=== PATIENT | female | born 1935 | race Caucasian/White ===

== ENCOUNTER → 2017-02-27 | Outpatient (CLI) | payer OTHER ==
[~2017-02-27] MED LIST: AMLO-110 PO; CALC-393 PO; CARV12.52 PO; CHOL200010 PO; FMR25 PO; FOLI1POW10 PO; GABA-113 PO; LEVOPOW36 PO; MAGN400T6 PO; MULT-190 PO; OXYC5TAB PO; RIVA1TAB4 PO; VALS320T PO
--- NOTE | 2017-02-27 15:06 | DIAGNOSTIC IMAGING REPORT ---
RIGHT KNEE 3 VIEWS CLINICAL HISTORY: Rheumatoid arthritis. Osteoporosis. Vitamin D deficiency. FINDINGS: AP, lateral, and sunrise views of the right knee are obtained. No prior studies are available for comparison at the time of dictation. The skeletal structures are osteopenic. No fracture is seen. There is moderate degenerative narrowing at the patellofemoral articulation. Mild narrowing is seen in the medial and lateral compartments. There are marginal osteophytes. A calcified fabella is incidentally noted. No erosive change is seen. There is no large joint effusion. Mild overlying soft tissue edema is identified. IMPRESSION: 1. Mild soft tissue swelling with no acute bony abnormality identified. 2. Osteopenia and arthritic change as above. Electronically signed by: Adolfo Maddox M.D. 02/27/2017 3:04 PM Dictated Date/Time: 02/27/2017 3:03 PM
== END | disposition home or self-care (01) ==
LOC: C.RAD1850 14:41
PROVIDERS: ATTEND Internal Medicine Rheumatology
DX: E55.9 Vitamin D deficiency, unspecified (principal); M79.642 Pain in left hand; M06.9 Rheumatoid arthritis, unspecified; M81.0 Age-related osteoporosis without current pathological fracture; M85.88 Other specified disorders of bone density and structure, other site

== ENCOUNTER → 2017-03-18 | Outpatient (CLI) | payer OTHER ==
[~2017-03-18] MED LIST changes: +PRED10TA PO
--- NOTE | 2017-03-18 13:34 | DIAGNOSTIC IMAGING REPORT ---
ABD/PELVIS IV AND ORAL CONT CLINICAL HISTORY: 82 years-old Female presenting with BREAST CA. TECHNIQUE: Multidetector CT of the abdomen and pelvis was performed after the administration of oral and intravenous contrast. IV contrast: 93 mL of Optiray 320. COMPARISON: PET/CT from April 2016 and December 20, [address] from December 2016. CT DOSE: The estimated cumulative dose is 470.[address] is above the chest CT. FINDINGS: Manager Demand topogram: Left subclavian Mediport terminates in the superior cavoatrial junction. Cardiomegaly. S-shaped scoliotic curvature of the spine. Lung bases: Right sided enlargement of the heart. Aortic valve calcification. Trace pericardial effusion. No pleural effusion. Liver: Capsular retraction with an underlying triangular peripheral hypodensity in the right hepatic lobe (series 5 image 15). Multiple well-defined hypodensities in the liver, grossly similar to prior exams. Patent hepatic vasculature. Biliary: Mild intrahepatic ductal dilatation diffusely. No extrahepatic biliary duct dilatation. No convincing evidence of an obstructing biliary mass. The adjacent large exophytic right renal cyst major mass effect on the liver hilum, potentially accounting for intrahepatic biliary ductal dilatation. Normal gallbladder. Pancreas: Normal. Spleen: Normal. Adrenal glands: Normal. Kidneys and ureters: Multiple bilateral well-defined hypodensities in the kidneys consistent with cysts. Mild dilatation of the right collecting system and right ureter. This is not well evaluated on prior exams. Gastrointestinal tract: Mild stool burden. No bowel obstruction. Peritoneal cavity: No free fluid or intraperitoneal gas. Bladder: Normal. Pelvic organs: Uterus surgically absent. No adnexal masses. Vasculature: Atherosclerosis of the normal caliber abdominal aorta. Lymph nodes: No enlarged lymph nodes in the abdomen or pelvis. Abdominal wall: Normal. Musculoskeletal: Degenerative changes of the spine. IMPRESSION: 1. No convincing evidence of intra-abdominal metastases. No lymphadenopathy. 2. Capsular retraction with an underlying peripheral hypodensity in the right hepatic lobe is indeterminate. Attention on follow-up. This is not well evaluated on prior exams due to noncontrast technique. Electronically signed by: Donnell Briggs M.D. 03/18/2017 1:33 PM Dictated Date/Time: 03/18/2017 1:21 PM
--- NOTE | 2017-03-18 13:36 | DIAGNOSTIC IMAGING REPORT ---
(CHEST) THORAX WITH HISTORY: 82 years Female BREAST CA COMPARISON: Chest CT 01/10/2017, PET/CT 10/12/2016, chest CT 08/28/2015. No reports from these studies were available at time of dictation. Images only. TECHNIQUE: Multiple axial CT images of the chest were obtained following the intravenous administration of 93 mL Optiray 320. FINDINGS: Left pectoral Hnjxes-m-Talz catheter is present with distal tip terminating in the SVC just proximal to the superior cavoatrial junction. Prior right-sided mastectomy. No pathologic-appearing axillary, mediastinal or hilar adenopathy by CT size criteria. The heart is mildly enlarged with coronary arterial calcifications seen. There is moderate atherosclerosis of the thoracic aorta. There is no pneumothorax or pleural effusion. Postsurgical changes of the right lung are noted which appear to be compatible with prior right upper lobectomy. Likely posttreatment radiation fibrosis noted within the anterior right lung. Linear pleural-based opacity of the lateral right lower lobe also noted suggesting scarring. Somewhat spiculated linear opacity, 7 mm of the right lung base appears unchanged from comparison CT of the chest as seen on image 145 of the thin section images. No definite pulmonary metastasis identified. Minimal mucosal secretions are seen within the airway. 2.1 x 1.1 cm hyperattenuating lesion of the subcapsular anterior right hepatic lobe is noted which is nonspecific and unchanged dating back to chest CT dated 08/28/2015 suggesting benign etiology such as FNH or flash filling hemangioma. Suggested cyst of the posterior right hepatic lobe measures 1.9 x 1.2 cm. Multilevel advanced intervertebral disc space narrowing is seen throughout the spine. IMPRESSION: 1. Stable exam of the chest with redemonstration of scattered areas of noncalcified nodularity about the chest which appear most compatible with areas of parenchymal scarring. No new suspicious pulmonary nodules are identified. 2. Postsurgical changes of the right lung suggest prior right upper lobectomy. 3. Prior right mastectomy. 4. No pathologic appearing adenopathy. 5. Stable appearance of hyperattenuating lesion of the subcapsular right hepatic lobe, 2.1 cm which is unchanged from 08/28/2015 suggesting FNH or flash filling hemangioma. The above report was generated using voice recognition software. It may contain grammatical, syntax or spelling errors. Electronically signed by: Geoffrey Borges M.D. 03/18/2017 1:35 PM Dictated Date/Time: 03/18/2017 1:21 PM
== END | disposition home or self-care (01) ==
LOC: C.CTS 10:20
PROVIDERS: ATTEND Nurse Practitioner Family
DX: D05.11 Intraductal carcinoma in situ of right breast (principal); C34.11 Malignant neoplasm of upper lobe, right bronchus or lung

== ENCOUNTER → 2017-03-26 | Outpatient (CLI) | payer OTHER | END | disposition home or self-care (01) | LOC: C.LAB1850 10:21 | PROVIDERS: ATTEND Internal Medicine Rheumatology | DX: M06.9 Rheumatoid arthritis, unspecified (principal); M81.0 Age-related osteoporosis without current pathological fracture; E55.9 Vitamin D deficiency, unspecified; M79.641 Pain in right hand; M79.642 Pain in left hand ==

== ENCOUNTER → 2017-04-01 | Outpatient (CLI) | payer OTHER ==
[2017-04-01 13:38] VITALS: BP 143/80; PULSE 90; TEMP 36.9; O2SAT 98
--- NOTE | 2017-04-01 15:51 | Radiation Oncology Follow-Up ---
Radiation Oncology Follow-Up Date of Visit Apr 01, 2017. 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 breast Status: Resolved Onset Date: 10/15/2013 Histology Subtype: ductal Stage: lll (C) Permanent Comment: Abnormal right breast mammogram right breast FNA 10/15/2013 revealing low-grade ductal carcinoma Status post right breast mastectomy and axillary dissection 10/22/2013 revealing invasive ductal carcinoma stage [id number] Maria Guadalupe receptor positive progesterone receptor positive and HER-2/daron negative Status post completion of radiation therapy 08/23/2014 received 6120 cGy Ongoing treatment with Femara Last Edited By: Yanni Sloan on Mar 22, 2015 16:05 Interim History She has been doing well over this past year. She denies any changes to the chest wall. She has noted no masses or tenderness no change of the axilla. She does have a history of lymphedema. She feels this is now controlled. She does not need to her to use her sleeve on a regular basis. 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 She had been diagnosed with adenocarcinoma of the lung last year. She is followed closely by medical oncology. She has recently undergone recheck scanning and has no reoccurrence. Allergies Coded Allergies: Penicillin V (Verified Allergy, Severe, SHORTNESS OF BREATH, 03/21/16) Clindamycin (Verified Allergy, Intermediate, RASH, 03/21/16) Doxycycline (Verified Allergy, Intermediate, HIVES, 03/21/16) Sulfa Antibiotics (Verified Allergy, Intermediate, RASH, 03/21/16) Diphenhydramine (Verified Allergy, Mild, DONT REMEMBER TOLD NOT TO TAKE WHEN SHE WAS CHEMO CENTER, 03/21/16) Lisinopril (Verified Allergy, Mild, DONT REMEMBER, 03/21/16) Epinephrine (Verified Adverse Reaction, Intermediate, HEART RACING, ) heart racing, happened at the dentist. Home Medications Scheduled Amlodipine (Norvasc), 5 MG PO DINNER Calcium Carbonate (Calcium), 1,200 MG PO QPM Carvedilol (Coreg), 1 TAB PO BID Cholecalciferol (Vitamin D), 2,000 MG PO QPM Folic Acid (Folic Acid), 3 MG PO DINNER Gabapentin (Neurontin), 300 MG PO BID Letrozole (Femara), 2.5 MG PO DAILY Levothyroxine Sodium (Bulk) (Levothyroxine Sodium), 100 MCG PO QAM Magnesium Oxide (Mag-Ox), 400 MG PO HS Ocuvite Preservision (Ocuvite Preservision), 3 TAB PO DINNER Prednisone Tab (Prednisone), 20 MG PO DAILY Rivaroxaban (Xarelto), 20 MG PO DINNER Valsartan (Diovan), 320 MG PO DINNER Review of Systems Gastrointestinal: Symptoms: WNL Oral: Symptoms: No Problems Other Oral Symptoms: Patient having trouble swallowing larger pills Respiratory: Symptoms: WNL Respiratory Comments: SOB with walking up stairs Other Respiratory: SOB with exertion that has improved;intermittent dry cough; Urinary: Symptoms: WNL Skin: Symptoms: No Problems Breast: Right Upper Arm Measurement: 27.0 Right Mid Arm Measurement: 21.0 Right Wrist Measurement: 15.5 Left Upper Arm Measurement: 28.0 Left Mid Arm Measurement: 21.5 Left Wrist Measurement: 15.5 Arm Dominence: Right Cosmetic Comments: hx lymphedema of right arm Physical Exam Vital Signs Date Time Temp Pulse Resp B/P (MAP) Pulse Ox O2 Delivery O2 Flow Rate FiO2 04/01/17 13:38 36.9 90 18 143/80 98 Pain: Pain Location: None Patient Pain Scale: 0 - 10 Initial Pain Intensity: 0.0 Fatigue: None General Appearance: + thin Eyes: normal inspection, EOMI ENT: normal ENT inspection, hearing grossly normal Neck: no adenopathy, thyroid normal Respiratory/Chest: lungs clear, no respiratory distress, no accessory muscle use Breast: Breast examination reveals status post mastectomy on the right. There is diffuse telangiectasias across the chest wall. There are no masses or tenderness and no axillary adenopathy. The left breast showed no masses or tenderness and no axillary adenopathy. Cardiovascular: no gallop, no murmur, + irregularly irregular Abdomen: non tender, soft Extremities: no pedal edema Neurologic/Psychiatric: no motor/sensory deficits, alert, normal mood/affect Skin: warm/dry Laboratory Studies Test 02/27/17 15:03 03/26/17 10:28 Calcium Level 10.0 mg/dl (8.5-10.1) 25-Hydroxy Vitamin D Total 49.7 ng/ml (30-100) Parathyroid Hormone (Intact) 24.5 pg/mL (11.1-79.5) Erythrocyte Sedimentation Rate 2 mm/hr (0-21) Additional Studies Patient: GAURANG SERRANO Address1: [address] [place] [address] Rec: [id number] Address2: Acct ID: [id number] [facility] Zip: [place] [address] Date: 1935 Sex: F Room/Bed: Ref Phy: Rina Clifton M.D. SC: C.CTS Att Phy: Char Fernandez CRNP Report #: [id number] Lesly Phy: Rina Clifton M.D. Test: APW Admit Phy: Developmental Therapist: JONATHAN Interpreting Phy: Donnell Briggs MD Diagnosis: BREAST CA Ordering Phy: Char Fernandez Service Date: 03/18/17 Admit Date: 03/18/17 MNE: [id number] CONF: DICTATED BY: Donnell Briggs MD]] CC: Rina Clifton M.D., Lynn ., CRNP Endcc: [~ rep ct add3]] ABD/PELVIS IV AND ORAL CONT CLINICAL HISTORY: 82 years-old Female presenting with BREAST CA. TECHNIQUE: Multidetector CT of the abdomen and pelvis was performed after the administration of oral and intravenous contrast. IV contrast: 93 mL of Optiray 320. COMPARISON: PET/CT from April 2016 and December 20, [address] from December 2016. CT DOSE: The estimated cumulative dose is 470.44 is above [address] chest CT. FINDINGS: Block Engraver topogram: Left subclavian Mediport terminates in the superior cavoatrial junction. Cardiomegaly. S-shaped scoliotic curvature of the spine. Lung bases: Right sided enlargement of the heart. Aortic valve calcification. Trace pericardial effusion. No pleural effusion. Liver: Capsular retraction with an underlying triangular peripheral hypodensity in the right hepatic lobe (series 5 image 15). Multiple well-defined hypodensities in the liver, grossly similar to prior exams. Patent hepatic vasculature. Biliary: Mild intrahepatic ductal dilatation diffusely. No extrahepatic biliary duct dilatation. No convincing evidence of an obstructing biliary mass. The adjacent large exophytic right renal cyst major mass effect on the liver hilum, potentially accounting for intrahepatic biliary ductal dilatation. Normal gallbladder. Pancreas: Normal. Spleen: Normal. Adrenal glands: Normal. Kidneys and ureters: Multiple bilateral well-defined hypodensities in the kidneys consistent with cysts. Mild dilatation of the right collecting system and right ureter. This is not well evaluated on prior exams. Gastrointestinal tract: Mild stool burden. No bowel obstruction. Peritoneal cavity: No free fluid or intraperitoneal gas. Bladder: Normal. Pelvic organs: Uterus surgically absent. No adnexal masses. Vasculature: Atherosclerosis of the normal caliber abdominal aorta. Lymph nodes: No enlarged lymph nodes in the abdomen or pelvis. Abdominal wall: Normal. Musculoskeletal: Degenerative changes of the spine. IMPRESSION: 1. No convincing evidence of intra-abdominal metastases. No lymphadenopathy. 2. Capsular retraction with an underlying peripheral hypodensity in the right hepatic lobe is indeterminate. Attention on follow-up. This is not well evaluated on prior exams due to noncontrast technique. Electronically signed by: Donnell Briggs M.D. 03/18/2017 1:33 PM Dictated Date/Time: 03/18/2017 1:21 PM Patient: GAURANG SERRANO Address1: [address] [place] [address] Rec: [id number] Address2: Acct ID: [id number] [facility] Zip: [place] [address] Date: 1935 Sex: F Room/Bed: Ref Phy: Rina Clifton M.D. SC: C.CTS Att Phy: Char Fernandez CRNP Report #: [id number] Lesly Phy: Rina Clifton M.D. Test: CX Admit Phy: Developmental Therapist: JONATHAN Interpreting Phy: Arnie Borges D.O. Diagnosis: BREAST CA Ordering Phy: Char Fernandez Service Date: 03/18/17 Admit Date: 03/18/17 MNE: [id number] CONF: DICTATED BY: Arnie Borges D.O.]] CC: Rina Clifton M.D., Lynn ., CRNP Endcc: [~ rep ct add3]] (CHEST) THORAX WITH HISTORY: 82 years Female BREAST CA COMPARISON: Chest CT 01/10/2017, PET/CT 10/12/2016, chest CT 08/28/2015. No reports from these studies were available at time of dictation. Images only. TECHNIQUE: Multiple axial CT images of the chest were obtained following the intravenous administration of 93 mL Optiray 320. FINDINGS: Left pectoral Wrqjpy-o-Nmjn catheter is present with distal tip terminating in the SVC just proximal to the superior cavoatrial junction. Prior right-sided mastectomy. No pathologic-appearing axillary, mediastinal or hilar adenopathy by CT size criteria. The heart is mildly enlarged with coronary arterial calcifications seen. There is moderate atherosclerosis of the thoracic aorta. There is no pneumothorax or pleural effusion. Postsurgical changes of the right lung are noted which appear to be compatible with prior right upper lobectomy. Likely posttreatment radiation fibrosis noted within the anterior right lung. Linear pleural-based opacity of the lateral right lower lobe also noted suggesting scarring. Somewhat spiculated linear opacity, 7 mm of the right lung base appears unchanged from comparison CT of the chest as seen on image 145 of the thin section images. No definite pulmonary metastasis identified. Minimal mucosal secretions are seen within the airway. 2.1 x 1.1 cm hyperattenuating lesion of the subcapsular anterior right hepatic lobe is noted which is nonspecific and unchanged dating back to chest CT dated 08/28/2015 suggesting benign etiology such as FNH or flash filling hemangioma. Suggested cyst of the posterior right hepatic lobe measures 1.9 x 1.2 cm. Multilevel advanced intervertebral disc space narrowing is seen throughout the spine. IMPRESSION: 1. Stable exam of the chest with redemonstration of scattered areas of noncalcified nodularity about the chest which appear most compatible with areas of parenchymal scarring. No new suspicious pulmonary nodules are identified. 2. Postsurgical changes of the right lung suggest prior right upper lobectomy. 3. Prior right mastectomy. 4. No pathologic appearing adenopathy. 5. Stable appearance of hyperattenuating lesion of the subcapsular right hepatic lobe, 2.1 cm which is unchanged from 08/28/2015 suggesting FNH or flash filling hemangioma. The above report was generated using voice recognition software. It may contain grammatical, syntax or spelling errors. Electronically signed by: Geoffrey Borges M.D. 03/18/2017 1:35 PM Dictated Date/Time: 03/18/2017 1:21 PM She had a mammogram at [facility] 07/26/2016. There is no evidence of malignancy for the left breast. BI-RADS Category 2. Assessment & Plan Plan: Continue annual mammography for the left breast. She continues close follow-up with medical oncology. She'll continue to do her exercises and where her sleeves to prevent lymphedema. We asked her to return to our office in 1 year. She may call if she has any questions or concerns in the interim. Total Time In Follow-Up I spent 20 minutes speaking to the patient and performing examination. I spent 15 minutes reviewing information and completing this note. Copy To Jimy You D.O.; Rina Clifton M.D. Problem Qualifiers (1) Malignant neoplasm of upper-outer quadrant of female breast: Estrogen receptor status: positive Laterality: right Qualified Codes: C50.411 - Malignant neoplasm of upper-outer quadrant of right female breast; Z17.0 - Estrogen receptor positive status [ER+]
== END | disposition home or self-care (01) ==
LOC: C.ONC 13:17
PROVIDERS: ATTEND Physician Assistant Medical
DX: C50.411 Malignant neoplasm of upper-outer quadrant of right female breast (principal)

== ENCOUNTER → 2017-05-02 | Outpatient (CLI) | payer OTHER ==
[~2017-05-02] MED LIST changes: -OXYC5TAB PO
[2017-05-02 09:41] LABS: BASO % 0.5 %; BASO ABS # 0.03 K/uL (0-0.2); COMPLETE YES; EOS % 1.3 %; HEMATOCRIT 35.1 % (37-47); IG% 0.6 %; LYMPH % 8.8 %; LYMPH ABS # 0.56 K/uL (1.2-3.4); MEAN CELL VOLUME 92.6 fL (80-100); MEAN CORPUSCULAR HEMOGLOBIN 29.8 pg (25-34); MEAN CORPUSCULAR HGB CONC 32.2 g/dl (32-36); MEAN PLATELET VOLUME 10.2 fL (7.4-10.4); MONO % 6.4 %; NEUT % 82.4 %; PLATELET COUNT 134 K/uL (130-400); RED BLOOD COUNT 3.79 M/uL (4.2-5.4); WHITE BLOOD COUNT 6.37 K/uL (4.8-10.8)
[2017-05-02 10:05] LABS: ALT/SGPT 25 U/L (12-78); AST/SGOT 15 U/L (15-37); CREATININE 0.97 mg/dl (0.60-1.20)
== END | disposition home or self-care (01) ==
LOC: C.LAB1850 08:06
PROVIDERS: ATTEND Internal Medicine Rheumatology
DX: M06.9 Rheumatoid arthritis, unspecified (principal)

== ENCOUNTER → 2017-06-13 | Outpatient (CLI) | payer OTHER ==
[~2017-06-13] MED LIST changes: +OPTIRAY 320 IV PRN
--- NOTE | 2017-06-13 12:22 | DIAGNOSTIC IMAGING REPORT ---
ADDENDUM The findings paragraph on the original report should have been deleted prior to finalizing the report. Please disregard this paragraph. Electronically signed by: Wild Shelton M.D. 06/13/2017 1:46 PM Dictated Date/Time: 06/13/2017 1:45 PM ORIGINAL REPORT CHEST CT WITH CONTRAST CT DOSE: 209.33 mGy.cm HISTORY: Lung cancer. TECHNIQUE: Multiaxial CT images of the chest were performed following the intravenous administration of contrast. A dose lowering technique was utilized adhering to the principles of ALARA. COMPARISON: Chest CT 03/18/2017. Multiple bilateral renal cysts. The spleen and adrenal glands are unremarkable. No pleural fusions. Trace pericardial effusion, unchanged. The heart remains enlarged. Prior right mastectomy. No axillary lymphadenopathy. A left Port-A-Cath terminates in the SVC. Normal caliber thoracic aorta with no evidence for dissection. The main pulmonary arteries are patent. No hilar lymphadenopathy. Subcentimeter mediastinal lymph nodes do not meet CT criteria for pathologic involvement. Although, the dominant right peritracheal lymph node on image 111 has increased in size and currently measures 8 mm, previous measuring 6 mm. No change in the peripheral hypervascular focus within the right hepatic lobe which measures 2 cm. This time. Central hypodensity and focal liver traction. No change in the patchy air sclerosis along the right side of the manubrium which measures 2 cm. No pneumothorax. Stable scattered tiny nodules remain unchanged. These are most pronounced within the left upper lobe. No new pulmonary nodules identified. Prior right upper lobectomy. Residual central airways are patent. No change in the 1.7 x 1.3 cm groundglass irregular nodule within the periphery the right lower lobe. There is also stable linear scarlike density within the right lower lobe on image 106. There is also patchy stable sclerosis within the right anterior first rib. FINDINGS: The lungs are clear. The mediastinal vascular structures are within normal limits. No mediastinal or hilar lymphadenopathy. No pleural effusion or pneumothorax. Limited views of the upper abdomen demonstrate a normal liver and spleen. IMPRESSION: 1. Overall, similar exam compared to the prior study.. 2. Postoperative changes consistent with prior right upper lobectomy. 3. No change in 1.7 x 1.3 cm groundglass irregular nodule within the periphery of the right lower lobe. This could represent an area of scarring. However, low-grade neoplasm remains the diagnosis of exclusion. Continued follow up is recommended. 4. Stable 2 cm hypervascular focus within the right hepatic lobe. This favors a benign process. 5. No change in the scattered tiny nodules within the lungs. No new pulmonary nodules identified. 6. Subcentimeter mediastinal lymph nodes do not meet CT criteria for pathologic involvement. However, these have slightly increased in size compared the prior chest CT. A follow-up [address] is recommended to ensure stability. 6. Stable cardiomegaly. 7. Stable trace pericardial effusion. 8. Stable patchy areas of cirrhosis within the right anterior first rib and right side of the manubrium. The long-term stability favors post radiation changes. Electronically signed by: Wild Shelton M.D. 06/13/2017 12:21 PM Dictated Date/Time: 06/13/2017 12:02 PM
== END | disposition home or self-care (01) ==
LOC: C.CTS 10:54
PROVIDERS: ATTEND Nurse Practitioner Family
DX: C34.11 Malignant neoplasm of upper lobe, right bronchus or lung (principal); D05.11 Intraductal carcinoma in situ of right breast; R91.1 Solitary pulmonary nodule; Z90.2 Acquired absence of lung [part of]; R91.8 Other nonspecific abnormal finding of lung field; I51.7 Cardiomegaly; I31.3 Pericardial effusion (noninflammatory); Z92.3 Personal history of irradiation

== ENCOUNTER → 2017-06-25 | Outpatient (CLI) | payer OTHER ==
[~2017-06-25] MED LIST changes: -OPTIRAY 320 IV PRN
[2017-06-25 10:37] LABS: BASO % 0.3 %; BASO ABS # 0.02 K/uL (0-0.2); COMPLETE YES; EOS % 3.6 %; HEMATOCRIT 36.6 % (37-47); IG% 0.6 %; LYMPH % 8.1 %; LYMPH ABS # 0.57 K/uL (1.2-3.4); MEAN CELL VOLUME 93.6 fL (80-100); MEAN CORPUSCULAR HEMOGLOBIN 30.7 pg (25-34); MEAN CORPUSCULAR HGB CONC 32.8 g/dl (32-36); MEAN PLATELET VOLUME 10.4 fL (7.4-10.4); MONO % 7.7 %; NEUT % 79.7 %; PLATELET COUNT 167 K/uL (130-400); RED BLOOD COUNT 3.91 M/uL (4.2-5.4)
[2017-06-25 10:47] LABS: AST/SGOT 18 U/L (15-37); CREATININE 0.94 mg/dl (0.60-1.20)
[2017-06-25 10:54] LABS: ALKALINE PHOSPHATASE 65 U/L (45-117); ALT/SGPT 22 U/L (12-78)
== END | disposition home or self-care (01) ==
LOC: C.LAB1850 09:45
PROVIDERS: ATTEND Internal Medicine Rheumatology
DX: M06.9 Rheumatoid arthritis, unspecified (principal); Z79.899 Other long term (current) drug therapy; Z79.52 Long term (current) use of systemic steroids

== ENCOUNTER → 2017-09-10 | Outpatient (CLI) | payer OTHER ==
[2017-09-10 09:30] LABS: BASO % 0.8 %; BASO ABS # 0.04 K/uL (0-0.2); EOS % 2.9 %; EOS ABS # 0.15 K/uL (0-0.5); HEMATOCRIT 34.3 % (37-47); HEMOGLOBIN 11.2 g/dL (12.0-16.0); IG# 0.01 K/uL (0.00-0.02); LYMPH ABS # 0.57 K/uL (1.2-3.4); MEAN CELL VOLUME 95.5 fL (80-100); MEAN CORPUSCULAR HEMOGLOBIN 31.2 pg (25-34); MEAN CORPUSCULAR HGB CONC 32.7 g/dl (32-36); MEAN PLATELET VOLUME 10.5 fL (7.4-10.4); MONO % 7.5 %; MONO ABS # 0.39 K/uL (0.11-0.59); NEUT % 77.6 %; NEUT ABS # 4.03 K/uL (1.4-6.5); PLATELET COUNT 145 K/uL (130-400); RED CELL DISTRIBUTION WIDTH CV 15.3 % (11.5-14.5); RED CELL DISTRIBUTION WIDTH SD 53.4 fL (36.4-46.3); WHITE BLOOD COUNT 5.19 K/uL (4.8-10.8)
[2017-09-10 09:58] LABS: ALBUMIN 3.7 gm/dl (3.4-5.0); ALT/SGPT 23 U/L (12-78); AST/SGOT 18 U/L (15-37)
[2017-09-10 10:06] LABS: ALKALINE PHOSPHATASE 50 U/L (45-117); TOTAL PROTEIN 6.4 gm/dl (6.4-8.2)
== END | disposition home or self-care (01) ==
LOC: C.LAB1850 08:28
PROVIDERS: ATTEND Internal Medicine Rheumatology
DX: M06.9 Rheumatoid arthritis, unspecified (principal); Z79.52 Long term (current) use of systemic steroids; Z79.899 Other long term (current) drug therapy

== ENCOUNTER → 2018-01-08 | Outpatient (CLI) | payer OTHER ==
[2018-01-08 14:32] LABS: BASO % 0.2 %; BASO ABS # 0.01 K/uL (0-0.2); EOS % 0.8 %; EOS ABS # 0.05 K/uL (0-0.5); HEMATOCRIT 35.6 % (37-47); IG# 0.02 K/uL (0.00-0.02); LYMPH ABS # 0.73 K/uL (1.2-3.4); MEAN CORPUSCULAR HEMOGLOBIN 31.3 pg (25-34); MEAN CORPUSCULAR HGB CONC 33.7 g/dl (32-36); MEAN PLATELET VOLUME 10.1 fL (7.4-10.4); MONO % 2.9 %; MONO ABS # 0.19 K/uL (0.11-0.59); NEUT % 84.8 %; NEUT ABS # 5.64 K/uL (1.4-6.5); PLATELET COUNT 154 K/uL (130-400); RED CELL DISTRIBUTION WIDTH CV 14.3 % (11.5-14.5); RED CELL DISTRIBUTION WIDTH SD 48.7 fL (36.4-46.3); WHITE BLOOD COUNT 6.64 K/uL (4.8-10.8)
[2018-01-08 15:13] LABS: CREATININE 0.93 mg/dl (0.60-1.20)
== END | disposition home or self-care (01) ==
LOC: C.LAB1850 13:48
PROVIDERS: ATTEND Internal Medicine Rheumatology
DX: M06.9 Rheumatoid arthritis, unspecified (principal); Z79.899 Other long term (current) drug therapy; Z79.52 Long term (current) use of systemic steroids

== ENCOUNTER → 2018-01-14 | Outpatient (CLI) | payer OTHER ==
[~2018-01-14] MED LIST changes: +OPTIRAY 320 IV PRN
--- NOTE | 2018-01-14 12:16 | DIAGNOSTIC IMAGING REPORT ---
CT ABD/PELVIS IV AND ORAL CONT CLINICAL HISTORY: Lung carcinoma COMPARISON STUDY: 03/18/2017 TECHNIQUE: Following the IV administration of 119 mL of Optiray-320, CT scan of the abdomen and pelvis was performed from the lung bases to the proximal femurs. Images are reviewed in the axial, sagittal, and coronal planes. IV contrast was administered without complication. A dose lowering technique was utilized adhering to the principles of ALARA. CT DOSE: FINDINGS: Lower chest: There is mild subpleural reticulation. There are no pleural effusions. The heart is mildly enlarged. There is left atrial enlargement. Liver: There is stable hepatic cysts, the largest of which measures 17 mm. There is also a stable 8 mm subcapsular right lobe hepatic hypodensity. Given its stability, this could represent a small hemangioma. Gallbladder: Unremarkable. Spleen: Normal in size and attenuation. Pancreas: Unremarkable. Adrenal glands: Unremarkable. Kidneys: There are multiple large bilateral renal cysts. The largest in the right measures 6.9 cm. The largest in the left measures 7.2 cm. Bowel: There are no transition zones indicate bowel obstruction. There are no acute inflammatory changes. There is no acute diverticulitis. There are no findings to indicate acute appendicitis. Peritoneum: There is no intraperitoneal free air or abdominal ascites. Vasculature: The abdominal aorta is normal in course and caliber. Adenopathy: None. Pelvic viscera: The uterus is surgically absent. Skeletal structures: No destructive osseous lesions are seen. There is a new nonspecific 7 mm sclerotic lesion involving the right superior pubic ramus. IMPRESSION: 1. Stable hepatic hypodensities, likely representing cysts. There is also a stable 8 mm right hepatic lobe hypodensity which may represent a hemangioma given its stability 2. Multiple large renal cysts 3. No evidence of pathologic adenopathy 4. New indeterminate 7 mm sclerotic lesion involving the right superior pubic ramus Electronically signed by: Yvon Maravilla M.D. 01/14/2018 12:14 PM Dictated Date/Time: 01/14/2018 12:07 PM
--- NOTE | 2018-01-14 12:18 | DIAGNOSTIC IMAGING REPORT ---
CT (CHEST) THORAX WITH CLINICAL HISTORY: 82 years-old Female presenting with LUNG CA 01/08/18 1358 CREA 0.93. TECHNIQUE: Multidetector CT imaging of the chest was performed after the administration of intravenous contrast. IV contrast: 119 mL of Optiray 320. A dose lowering technique was used consistent with the principles of ALARA (as low as reasonably achievable). COMPARISON: 06/13/2017. CT DOSE (mGy.cm): The estimated cumulative dose is 476.99 mGy.cm. FINDINGS: Yard [employer] Operator topogram: Unremarkable. On soft tissue windows, normal thyroid and thoracic inlet. Left subclavian Mediport terminates in the SVC. Postsurgical changes of right mastectomy. No axillary, supraclavicular, hilar, or mediastinal lymphadenopathy. Atherosclerosis of the aorta. Main pulmonary artery mildly enlarged measuring 3.2 cm in diameter. Multichamber enlargement of the heart. Coronary artery and aortic valve calcification. Small pericardial effusion, unchanged. No pleural effusions. Prominent renal cysts. Peripheral hypervascular focus in the right hepatic lobe, possibly flash filling hemangioma or vascular shunt. Trace hiatal hernia. On lung windows, redemonstration of the irregular opacity in the periphery of the right lower lobe (series 4 image 144), which now measures 15 mm. The configuration is unchanged. This is a mixture of solid and subsolid components and does not appear as a discrete nodule on the current exam. Minimal similar appearing peripheral and dependent irregular reticulation at the lung bases, right greater than left. Post surgical changes of right upper lobectomy. Architectural distortion of the right middle lobe. Small pulmonary herniation in the right anterior second intercostal space. Reticulation anteriorly in the right middle lobe likely sequela of prior radiation. Interval increase in tree-in-bud opacities in the posterior segment of the left upper lobe with the largest solid nodularity measuring 8 mm (series 4 image 94). Mosaic attenuation also noted. Central airways patent. On bone windows, degenerative changes of the spine. IMPRESSION: 1. Interval increase in tree-in-bud opacities with prominent solid nodularity in the posterior segment of the left upper lobe. This primarily raises concern for an infectious or inflammatory etiology, however, given the history of lung cancer, this should be followed to resolution. 2. Stable appearance of the peripheral right lower lobe irregular opacity. This appears less of a discrete nodule on the current exam. Given associated multifocal reticulation in a peripheral and dependent distribution in the lower lobes, right greater than left, this is favored to represent scarring or post radiation change. 3. Post radiation changes in the right middle lobe with a pulmonary herniation as on prior exam. 4. Postsurgical changes of right upper lobectomy. 5. No lymphadenopathy. 6. Mildly enlarged pulmonary artery suggesting pulmonary hypertension. 7. Postsurgical changes of right mastectomy. Electronically signed by: Donnell Briggs M.D. 01/14/2018 12:16 PM Dictated Date/Time: 01/14/2018 12:06 PM
== END | disposition home or self-care (01) ==
LOC: C.CTS 09:51
PROVIDERS: ATTEND Nurse Practitioner Family
DX: C34.11 Malignant neoplasm of upper lobe, right bronchus or lung (principal); N28.1 Cyst of kidney, acquired; R93.8 Abnormal findings on diagnostic imaging of other specified body structures

== ENCOUNTER → 2018-04-01 | Outpatient (CLI) | payer OTHER ==
[~2018-04-01] MED LIST changes: -AMLO-110 PO; +AMLO5TAB3 PO; +HYDR200T5 PO; +ONDA4TAB46 PO; -OPTIRAY 320 IV PRN; +PALB125C PO
[2018-04-01 08:53] VITALS: BP 138/75; PULSE 87; TEMP 36.6; O2SAT 100
--- NOTE | 2018-04-01 10:04 | Radiation Oncology Follow-Up ---
Radiation Oncology Follow-Up Date of Visit Apr 01, 2018. 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 Onset Date: 10/15/2013 Location: Recurrence in left axilla and manubrium Histology Subtype: Adenocarcinoma Stage: IV Permanent Comment: Abnormal right breast mammogram right breast FNA 10/15/2013 revealing low-grade ductal carcinoma Status post right breast mastectomy and axillary dissection 10/22/2013 revealing invasive ductal carcinoma stage [id number] Maria Guadalupe receptor positive progesterone receptor positive and HER-2/daron negative Status post completion of radiation therapy 08/23/2014 received 6120 cGy Ongoing treatment with Femara Abnormal PET/CT February 04, 2018 activity of left upper lobe of lung, left axilla, and manubrium Status post fine-needle aspiration of left axilla February 25, 2018 Metastatic adenocarcinoma consistent with breast primary Estrogen receptor positive, progesterone receptor negative, HER-2/daron negative Femara discontinued Initiation of Ibrance and Faslodex. Last Edited By: Yanni Sloan on Apr 01, 2018 10:02 Interim History She has been followed closely by medical oncology as well as pulmonary for the previous history of non-small cell lung cancer which was staged at IIIa. She had a PET scan on February 04, 2018. This revealed changes in the left upper lobe with pulmonary nodules the largest being 9 mm. There was FDG avidity. The distribution is suggestive of inflammatory process, the persistence of these nodules along with the moderately increased FDG activity makes metastatic disease the diagnosis of exclusion. There was FDG avid left axillary lymph nodes. There is an FDG avid sclerotic lesion within the manubrium. She underwent an FNA of the axilla on the left on February 25, 2018. This revealed malignant cells present consistent with metastatic adenocarcinoma of the breast. Estrogen receptor was positive, progesterone receptor was negative, and HER-2/daron was negative. Specimen [id number]. With this finding she is now started Ibrance. She is also being given Faslodex. She just started the Ibrance 3 days ago. Thus far she has no side effects. She will take this medication for 3 weeks and then she will be off for 1 week. She has scheduled laboratory studies. She denies any pain in the manubrium. She herself cannot palpate any enlarged nodes in the left axilla. She does have a cough which is nonproductive. She denies shortness of breath. Allergies Coded Allergies: Penicillin V (Verified Allergy, Severe, SHORTNESS OF BREATH, 03/21/16) Clindamycin (Verified Allergy, Intermediate, RASH, 03/21/16) Doxycycline (Verified Allergy, Intermediate, HIVES, 03/21/16) Sulfa Antibiotics (Verified Allergy, Intermediate, RASH, 03/21/16) Diphenhydramine (Verified Allergy, Mild, DONT REMEMBER TOLD NOT TO TAKE WHEN SHE WAS CHEMO CENTER, 03/21/16) Lisinopril (Verified Allergy, Mild, DONT REMEMBER, 03/21/16) Epinephrine (Verified Adverse Reaction, Intermediate, HEART RACING, ) heart racing, happened at the dentist. Home Medications Scheduled Amlodipine (Norvasc), 5 MG PO DINNER Calcium Carbonate (Calcium), 1,200 MG PO QPM Carvedilol (Coreg), 0.5 TAB PO BID Cholecalciferol (Vitamin D), 2 TABS PO QPM Folic Acid (Folic Acid), 3 MG PO DINNER Gabapentin (Neurontin), 300 MG PO BID Hydroxychloroquine Sulfate (Plaquenil), 1 TAB PO DAILY Letrozole (Femara), 2.5 MG PO DAILY Levothyroxine Sodium (Bulk) (Levothyroxine Sodium), 100 MCG PO QAM Magnesium Oxide (Mag-Ox), 400 MG PO HS Ocuvite Preservision (Ocuvite Preservision), 3 TAB PO DINNER Palbociclib (Ibrance), 1 CAP PO DAILY Prednisone Tab (Prednisone), 5 MG PO DAILY Rivaroxaban (Xarelto), 20 MG PO DINNER Valsartan (Diovan), 320 MG PO DINNER Scheduled PRN Ondansetron Hcl (Zofran), 4 MG PO Q6 PRN for Nausea Review of Systems Gastrointestinal: Symptoms: WNL Oral: Symptoms: No Problems Other Oral Symptoms: occ mouth sores , none now Respiratory: Symptoms: SOB With Exertion Urinary: Symptoms: Nocturia Comments: nocturia times 5 Skin: Symptoms: No Problems Breast: Right Upper Arm Measurement: 28.5 Right Mid Arm Measurement: 22.0 Right Wrist Measurement: 15.7 Left Upper Arm Measurement: 31.0 Left Mid Arm Measurement: 23.0 Left Wrist Measurement: 16.0 Arm Dominence: Right Physical Exam Vital Signs Date Time Temp Pulse Resp B/P (MAP) Pulse Ox O2 Delivery O2 Flow Rate FiO2 04/01/18 08:53 36.6 87 16 138/75 100 Fatigue: None General Appearance: no apparent distress Eyes: normal inspection, EOMI ENT: normal ENT inspection, hearing grossly normal Neck: no adenopathy, thyroid normal, no JVD Respiratory/Chest: lungs clear, no respiratory distress, no accessory muscle use Breast: Breast examination reveals status post mastectomy on the right. There is telangiectasia over the right chest wall. There are no masses. There is slight tenderness of the axilla near the pectoralis minor. Left breast showed no masses or tenderness and no axillary adenopathy. Cardiovascular: no gallop, no murmur, + irregularly irregular Abdomen: non tender, soft Extremities: no pedal edema Neurologic/Psychiatric: no motor/sensory deficits, alert, normal mood/affect Skin: warm/dry Pain Management Patient Reports Pain: Yes Side: Right Initial Pain Intensity: 0.0 Pain Management Plan This is a discomfort and she does not give a pain level. Laboratory Laboratory Results: not applicable Pathology Pathology Results: were reviewed, and pertinent findings noted in HPI Pathology Comments LYMPH NODE, LEFT AXILLA, ULTRASOUND-GUIDED ASPIRATION: 1. MALIGNANT CELLS PRESENT CONSISTENT WITH METASTATIC ADENOCARCINOMA, BREAST PRIMARY. 2. ESTROGEN RECEPTOR: POSITIVE (~100%, STRONG TO INTERMEDIATE INTENSITY). 3. PROGESTERONE RECEPTOR: NEGATIVE (0%). 4. HER2 DARON OVEREXPRESSION: NEGATIVE (SCORE 0, 0% STAINING). 5. SEE COMMENT Imaging Imaging Studies: were reviewed, and pertinent findings noted below Imaging Comments PET/CT SKULL-THIGH CLINICAL HISTORY: LUNG CANCER breast carcinoma COMPARISON STUDY: CT scan of the chest abdomen and pelvis dated 01/14/2018, outside PET/CT performed 04/06/2016 FINDINGS: The patient was injected with 12 mCi of F 18 labeled FDG. Findings standard induction phase, PET/CT scanning is performed from the skull base to the upper thigh region. Activity within the neck is felt to be physiologic. Within the chest, there are new FDG avid left axillary lymph nodes which demonstrate SUV maximum of 4.3. The largest node measures 9 mm in diameter. There are clustered pulmonary nodules within the left upper lobe, similar to the most recent CT scan. The largest measures 9 mm. These are FDG avid with SUV maximum of 5.1. There are postsurgical changes of a right mastectomy. There is no pathologic mediastinal jorge activity. There is an FDG avid sclerotic manubrial lesion with SUV maximum of 5.4. Within the abdomen and pelvis there is no pathologic hepatic or splenic activity. There is no pathologic adrenal gland activity. There are multiple large bilateral renal cysts. There is no pathologic jorge activity. There is physiologic urinary tract and bowel activity. There is a 7 mm sclerotic lesion within the right inferior pubic ramus this is not significantly FDG avid. IMPRESSION: 1. Persistent clustered left upper lobe pulmonary nodules, the largest of which measures 9 mm. These are FDG avid with SUV maximum of 5.1. Although the distribution, is suggestive of an inflammatory process, the persistence of these nodules along with the moderately intense FDG activity makes metastatic disease, the diagnosis of exclusion. 2. FDG avid left axillary lymph nodes. 3. FDG avid sclerotic lesion within the manubrium suspicious for metastatic disease 4. No evidence of hepatic metastasis. Electronically signed by: Yvon Maravilla M.D. 02/04/2018 10:38 AM Dictated Date/Time: 02/04/2018 10:18 AM Assessment & Plan Plan: Continue follow-up with medical oncology. She continues on her current regimen of antiestrogen therapy. She has scheduled dates for laboratory studies. She will be seeing Dr. Marmolejo on April 22, 2018. She is currently not having any discomfort in the area of the manubrium. She does not have any palpable mass or tenderness in the axilla. She will have recheck scanning per medical oncology. We discussed that she will be referred back to our office should medical oncology feel there are any areas that would need treatment with radiation. We asked her to return to our office in 1 year. She may call if she has any questions or concerns in the interim. Total Time In Follow-Up I spent 20 minutes speaking to the patient in performing examination. I spent 15 minutes reviewing information and completing this note. Copy To Link, MADY Youngblood; Norbert Marmolejo MD Problem Qualifiers (1) Malignant neoplasm of upper-outer quadrant of female breast: Estrogen receptor status: positive Laterality: right Qualified Codes: C50.411 - Malignant neoplasm of upper-outer quadrant of right female breast; Z17.0 - Estrogen receptor positive status [ER+]
== END | disposition home or self-care (01) ==
LOC: C.ONC 08:25
PROVIDERS: ATTEND Physician Assistant Medical
DX: Z08 Encounter for follow-up examination after completed treatment for malignant neoplasm (principal); Z92.3 Personal history of irradiation; Z85.3 Personal history of malignant neoplasm of breast

== ENCOUNTER → 2018-04-22 | Outpatient (CLI) | payer OTHER ==
[2018-04-22 12:36] LABS: ALKALINE PHOSPHATASE 48 U/L (45-117); ALT/SGPT 26 U/L (12-78); AST/SGOT 22 U/L (15-37); TOTAL PROTEIN 6.8 gm/dl (6.4-8.2)
[2018-04-22 12:42] LABS: HEMATOCRIT 28.3 % (37-47); HEMOGLOBIN 9.7 g/dL (12.0-16.0); MEAN CELL VOLUME 96.3 fL (80-100); MEAN CORPUSCULAR HGB CONC 34.3 g/dl (32-36); MEAN PLATELET VOLUME 10.9 fL (7.4-10.4); PLATELET COUNT 74 K/uL (130-400); RED CELL DISTRIBUTION WIDTH CV 16.6 % (11.5-14.5); WHITE BLOOD COUNT 1.75 K/uL (4.8-10.8)
[2018-04-22 12:43] LABS: BASO % 1.1 %; BASO ABS # 0.02 K/uL (0-0.2); EOS % 0.6 %; EOS ABS # 0.01 K/uL (0-0.5); IG# 0.01 K/uL (0.00-0.02); LYMPH % 18.9 %; LYMPH ABS # 0.33 K/uL (1.2-3.4); MONO % 2.3 %; MONO ABS # 0.04 K/uL (0.11-0.59); NEUT % 76.5 %; NEUT ABS # 1.34 K/uL (1.4-6.5)
== END | disposition home or self-care (01) ==
LOC: C.LAB1850 10:19
PROVIDERS: ATTEND Internal Medicine Rheumatology
DX: M06.9 Rheumatoid arthritis, unspecified (principal); Z79.52 Long term (current) use of systemic steroids; Z79.899 Other long term (current) drug therapy